=== PATIENT | male | born 1975 | race Caucasian/White ===

== ENCOUNTER 2021-03-28 14:11 | Outpatient (REF) | payer OTHER, SELFPAY | END 2021-03-28 14:12 | disposition home or self-care (01) | LOC: HO.LNP 14:11 | PROVIDERS: Visit Provider Physician Assistant Medical | DX: Z20.822 Contact with and (suspected) exposure to COVID-19 (principal); J01.90 Acute sinusitis, unspecified | CPT/HCPCS: U0003; U0005 ==

== ENCOUNTER 2024-12-20 13:29 | Outpatient (AMB) | payer OTHER, SELFPAY ==
[2024-12-20 14:15] VITALS: BP 142/90; PULSE 73; TEMP 36.7; O2SAT 97; BMI 30.2
--- NOTE | 2024-12-20 14:15 | AM.OFFWIN_ITS ---
Intake Vital Signs 12/20/24 14:15 Height 6 ft 1 in Weight 229 lb BMI 30.2 BP 142/90 H Blood Pressure Location Rt brachial Position Sitting Pulse 73 Pulse Source Pulse Oximeter Temp 98.0 F Temp Source Oral Pulse Oximetry (%) 97 Oxygen Delivery Method Room Air Intake Visit Reasons: EP Stung in the eye Intake Note: pt presents with right swollen eye, and itchy Patient Tobacco Use Status: Never used Tobacco Allergies No Known Allergies Allergy (Verified 12/20/24 14:17) Do you need a note to return to daycare/school/sports/work: Yes HPI HPI Comments History of Present Illness Details 49 y/o Male patient who presents to the walk in clinic with c/o Right eye swelling, itchy and painful since Friday. He was playing Golf Sat when he felt something flying into his Eye - he thinks an insect stung his eye. Reports some blurry vision during the morning time. [facility] Medical History (Updated 12/20/24 @ 14:55 by Eileen Encarnacion NP) Bacterial conjunctivitis of right eye Social History Patient Tobacco Use Status: Never used Tobacco Review of Systems Const All systems reviewed & are unremarkable except as noted in HPI and below Physical Exam Vital Signs: Last Vital Signs Temp 98.0 F 12/20/24 14:15 Pulse 73 12/20/24 14:15 BP 142/90 H 12/20/24 14:15 Pulse Ox 97 12/20/24 14:15 Oxygen Delivery Method Room Air 12/20/24 14:15 BMI result Body Mass Index 30.2 Const General: no acute distress Nutritional Appearance: overweight Orientation/consciousness: patient oriented x3 Eyes Eyelids: Yes eyelid abnormality (Right Upper Lid Swelling and erythema. ) Conjunctivae: conjunctival abnormal right conjunctival injection Pupils: Equal, round and reactive pupils present EOM: EOMs intact bilaterally Neuro General: patient oriented x3, gait normal and moves all extremities Cranial nerves: Yes Equal, round and reactive pupils present Psych Speech and movement: Normal speech and movement present Assessment & Plan Assessment & Plan (1) Bacterial conjunctivitis of right eye: Code(s): H10.9 - Unspecified conjunctivitis Plan: Ordered Cipro Otic Drops for 5 days. Keep eye clean Do not wear contact lens. F/U with eye doctor if not improved. Medications: New ciprofloxacin HCl 0.3% Put 1-2 drops in the affected eye every 2hrs up to 8 cristian es per day for 2 days; Then 4 times per day for 5days. 5 mL 0RF H10.9 - Unspecified conjunctivitis Coding Level of Care Code Est Pt Level 4 (27657) Diagnoses Bacterial conjunctivitis of right eye H10.9 Time Spent (min) 20
== END 2024-12-20 14:58 | disposition home or self-care (01) ==
PROVIDERS: Visit Provider Nurse Practitioner Family
DX: H10.9 Unspecified conjunctivitis (principal)

== ENCOUNTER 2025-01-01 09:22 | Outpatient (AMB) | payer OTHER, SELFPAY ==
--- NOTE | 2025-01-01 09:33 | AM.OFFWIN_ITS ---
Intake Vital Signs 01/01/25 09:34 Height 6 ft 1 in Weight 229 lb BMI 30.2 BP 134/82 Blood Pressure Location Rt brachial Position Sitting Respiration 16 Pulse 77 Pulse Source Pulse Oximeter Temp 98.4 F Temp Source Oral Pulse Oximetry (%) 96 Oxygen Delivery Method Room Air Intake Visit Reasons: EP-Low back pain, fell home Intake Note: Pt is here today c/o Lt lower back pain down the Lt leg some numbness due to twisting the wrong way since friday Patient Tobacco Use Status: Never used Tobacco Allergies No Known Allergies Allergy (Verified 01/01/25 09:52) Medication List - Last Reconciled 01/01/25 by Carol Nunn, SILICATOR-BC amlodipine-valsartan 5-160 mg 1 tab PO DAILY ciprofloxacin HCl 0.3% Put 1-2 drops in the affected eye every 2hrs up to 8 times per day for 2 days; Then 4 times per day for 5days. hydrochlorothiazide 25 mg PO DAILY HPI HPI Comments History of Present Illness Details History of Present Illness - The patient is a 49-year-old male pres enting with left low back pain w/ sx radiating into LLE - Pain onset with twisting motion while handling grass clippings on Friday. - Left-sided back pain radiating to the left hamstring with foot tingling. - Previous episode six months ago; no ch ronic management. - No weakness, loss of function, or misael l/bladder symptoms. - Pain improved with Tylenol, heat, and rest. - No previous physical therapy or specia list intervention. - Missed work Fri-Fri needs work note. Review of Systems - Musculoskeletal: Reports back pain and numbness in the left foot. - Neurological: Denies weakness, bowel o r bladder dysfunction. Physical Exam General: Well developed, well nourished, in no acute distress. Appears stated age. Head: Normocephalic, atraumatic. Eyes: Pupils are equal, round and reactive to light and accommodation. Conjunctivae are clear. EOMI Neck: supple Lungs: Speaking in full sentences .. Musculoskeletal: No spinal tenderness. No paraspinal muscle spasm. Pain and tenderness over the left SI joint with palpation, glute bridge and SLR. Left leg shortening noted when supine. Normal gait. Normal strength, tone, reflexes. No swelling, redness, or effusions. Pulses: Peripheral pulses are equal and palpable bilaterally. Extremities: No clubbing, cyanosis nor edema is noted. Psych: Mood and affect appropriate. Discussion Notes I discussed with the patient that the most likely diagnosis is sacroiliac joint dysfunction with radicular sx, which is consistent with the symptoms and mechanism of injury described. I explained that physical therapy is often recommended to strengthen the surrounding musculature and assist in the realignment of the SI joint, although the patient opts to try home exercises initially. He also has a chiropracter friend - I advised this can be helpful,too. I instructed the patient on specific home exercises to aid in alleviating symptoms. Additionally, I recommended a short course of oral steroids to reduce inflammation and advised against NSAID use concurrently with the steroid regimen. I also emphasized the need to have meals with medication intake and clarified that progression to physical therapy or a reevaluation would be necessary if symptoms persist. Follow-up with the primary care provider and advisement to return if symptoms worsen were also discussed. Patient was given time to ask questions. All questions were answered to their satisfaction. Assessment and Plan 1. Sacroiliac Joint Dysfunction, L - Recommend home exercises for realignme nt. - Prescribe five-day oral steroid course . - Advise against NSAID use with steroids . - Suggest PCP follow-up if not improved. 2. Back Pain with LLE radicular sx - Manage with Tylenol and heat. - Avoid exacerbating activities. - Consider PT if no improvement. Patient Instructions - Perform home exercises to help with SI joint realignment. - Take prescribed steroids once daily wi th food for five days. - Avoid NSAIDs while taking steroids. - Use Tylenol and heat as needed for carissa n. - Consult primary care provider if pain does not improve. Consent Patient was informed and verbally consented to the use of an ambient scribe for clinic note documentation during this visit. [facility] Medical History (Updated 12/20/24 @ 14:55 by Eileen Encarnacion NP) Bacterial conjunctivitis of right eye Social History Patient Tobacco Use Status: Never used Tobacco Physical Exam Vital Signs: Last Vital Signs Temp 98.4 F 01/01/25 09:34 Pulse 77 01/01/25 09:34 Resp 16 01/01/25 09:34 BP 134/82 01/01/25 09:34 Pulse Ox 96 01/01/25 09:34 Oxygen Delivery Method Room Air 01/01/25 09:34 BMI result Body Mass Index 30.2 Assessment & Plan Assessment & Plan (1) Low back pain radiating to left leg: Code(s): M54.50 - Low back pain, unspecified; M79.605 - Pain in left leg (2) Sacroiliac joint dysfunction of left side: Code(s): M53.3 - Sacrococcygeal disorders, not elsewhere classified Plan . Medications: New prednisone 50 mg PO DAILY 5 tabs 0RF 5 days Patient Instructions: Patient Instructions - Perform home exercises to help with SI joint realignment. - Take prescribed steroids once daily with food for five days. - Avoid NSAIDs while taking steroids. - Use Tylenol and heat as needed for pain. - Consult primary care provider if pain does not improve. - Consider Chiropracter or PT. Coding Level of Care Code Est Pt Level 3 (89434) Diagnoses Low back pain radiating to left leg M54.50; M79.605 Sacroiliac joint dysfunction of left side M53.3
[2025-01-01 09:34] VITALS: BP 134/82; PULSE 77; RESP 16; TEMP 36.9; O2SAT 96; BMI 30.2
== END 2025-01-01 10:01 | disposition home or self-care (01) ==
LOC: HO.HMCWIC 09:22
PROVIDERS: PCP Nurse Practitioner Family; Visit Provider Nurse Practitioner Family
DX: M54.50 Low back pain, unspecified (principal); M79.605 Pain in left leg; M53.3 Sacrococcygeal disorders, not elsewhere classified

== ENCOUNTER 2025-02-14 07:06 | Outpatient (AMB) | payer OTHER, SELFPAY ==
--- NOTE | 2025-02-14 07:07 | AM.OFFWIN_ITS ---
Intake Vital Signs 02/14/25 07:08 Height 6 ft 1 in Weight 224 lb 4 oz BMI 29.6 BP 142/98 H Blood Pressure Location Lt brachial Position Sitting Pulse 75 Pulse Source Pulse Oximeter Temp 98.4 F Temp Source Oral Pulse Oximetry (%) 98 Oxygen Delivery Method Room Air Intake Visit Reasons: EP Lower back pain Intake Note: Patient presents for lower back pain that radiates down left leg. Patient Tobacco Use Status: Never used Tobacco Allergies No Known Allergies Allergy (Verified 02/14/25 07:09) Do you need a note to return to daycare/school/sports/work: Yes HPI HPI Comments History of Present Illness Details 49 y/o Male Patient who presents to the walk in with c/o Lower back pain since last week. He was playing Golf Last Friday when he twisted his Back. He has been applying Heat/Cold and taking NSAIDs with Good relief. Pt asking for Return to work letter, he is feeling much better today. Reports his pain this morning at 2/10 on Painscale. Reports that Pain has been radiating down to his Left LE. This is a chronic Issue and he was last seen here 12/2024 for similar concern. Denies Numbness or Tingling of Toes and LE. Denies Bowel or bladder symptoms. [facility] Medical History (Updated 12/20/24 @ 14:55 by Eileen Encarnacion NP) Bacterial conjunctivitis of right eye Social History Patient Tobacco Use Status: Never used Tobacco Review of Systems Const All systems reviewed & are unremarkable except as noted in HPI and below Physical Exam Vital Signs: Last Vital Signs Temp 98.4 F 02/14/25 07:08 Pulse 75 02/14/25 07:08 BP 142/98 H 02/14/25 07:08 Pulse Ox 98 02/14/25 07:08 Oxygen Delivery Method Room Air 02/14/25 07:08 BMI result Body Mass Index 29.6 Const General: no acute distress Nutritional Appearance: overweight Orientation/consciousness: patient oriented x3 Back/Spine/Pelvis Back: back tenderness Thoracic/Lumbar Spine: paraspinal muscle tenderness, thoraco-lumbar spasm and lumbar spinal tenderness Neuro General: patient oriented x3, gait normal and moves all extremities Psych Speech and movement: Normal speech and movement present Assessment & Plan Assessment & Plan (1) Low back pain radiating to left lower extremity: Code(s): M54.50 - Low back pain, unspecified; M79.605 - Pain in left leg Plan: Pain has subsided - he want to return to work this morning. Continue with Conservative methods at home for pain relief If pain continues - F/U with PCP Coding Level of Care Code Est Pt Level 4 (04258) Diagnoses Low back pain radiating to left lower extremity M54.50; M79.605 Time Spent (min) 20
[2025-02-14 07:08] VITALS: BP 142/98; PULSE 75; TEMP 36.9; O2SAT 98; BMI 29.6
== END 2025-02-14 08:17 | disposition home or self-care (01) ==
PROVIDERS: PCP Nurse Practitioner Family; Visit Provider Nurse Practitioner Family
DX: M54.50 Low back pain, unspecified (principal); M79.605 Pain in left leg